=== PATIENT | male | born 1995 | race Caucasian/White ===

== ENCOUNTER 2021-01-13 20:27 | Emergency (ER) | payer BC ==
[2021-01-13] MEDS ORDERED: Sodium Chloride 0.9% 100 ML ONE (21:23)
[2021-01-13] MEDS ORDERED: Sodium Chloride 0.9% 1,000 ML ONE ×2 (21:23→23:00)
[2021-01-13] MEDS ORDERED: Sodium Chloride 0.9% 250 ML 500 ML ONE (21:23)
[2021-01-13] MEDS ORDERED: Clindamycin/D5W 900 mg/50 ml Premix Bag ONE (21:24)
[2021-01-13] MEDS ORDERED: Acetaminophen 500 MG TAB ONE (21:24)
[2021-01-13] MEDS ORDERED: Cefepime 2 GM VIAL ONE (21:24)
[2021-01-13] MEDS ORDERED: Ibuprofen 800 MG TAB ONE (21:26)
[2021-01-13 21:31] LABS: #Basophils 0.1 thou/uL (0.0-0.2); #Lymphocytes 0.7 thou/uL (1.20-3.40); #Monocytes 0.7 thou/uL (0.11-0.59); #Neutrophils 16.4 thou/uL (1.40-6.50); %Basophils 0.6 % (0.0-1.0); %Eosinophils 0.1 % (0.0-10.0); %Lymphocytes 4.1 % (21.0-51.0); %Monocytes 3.7 % (0.0-10.0); %Neutrophils 91.6 % (42.0-75.0); Hemoglobin 13.1 g/dL (14.0-18.0); Mean Corpuscular HGB CONC 32.1 g/dL (32.0-36.0); Mean Corpuscular Hemoglobin 26.2 pg (27.0-31.0); Mean Corpuscular Volume 81.8 fL (78.0-98.0); Mean Platelet Volume 9.3 fL (7.4-10.4); Platelet Count 205 thou/uL (130-400); RBC Distribution Width 12.5 % (11.5-14.5); Red Blood Cell (RBC) Count 5.01 mill/uL (4.70-6.10); White Blood Cell (WBC) Count 17.9 thou/uL (4.8-10.8)
--- NOTE | 2021-01-13 21:43 | RAD ---
SINGLE VIEW OF THE CHEST: History: Fever FINDINGS: Single view of the chest shows a normal sized cardiomediastinal silhouette. There is no evidence of c onsolidation, mass, or pleural effusion. The bones are unremarkable. IMPRESSION: No evidence of acute cardiopulmonary disease. POS: EAA
--- NOTE | 2021-01-13 21:43 | RAD ---
TWO VIEWS LEFT TIBIA/FIBULA: History: Fever, swelling. FINDINGS: Two views of the left tibia/fibula shows moderate diffuse soft tissue swelling. No fracture or disloc ation are seen. No osseous erosions are seen. IMPRESSION: No evidence of acute osseous abnormality. POS: EAA
[2021-01-13 21:46] LABS: ALT (SGPT) 33 U/L (8-55); AST (SGOT) 17 U/L (5-34); Albumin 3.9 g/dL (3.5-5.0); Alkaline Phosphatase 85 U/L (40-110); Anion Gap 16 mmol/L (10-20); BUN (Urea Nitrogen) 13 mg/dL (8.9-20.6); Bilirubin, Total 0.6 mg/dL (0.2-1.2); Calc. Creatinine Clearance 0 mL/min (70-130); Calcium 8.9 mg/dL (7.8-10.44); Carbon Dioxide 20 mmol/L (22-29); Chloride 102 mmol/L (98-107); Globulin 3.3 g/dL (2.4-3.5); Glucose 171 mg/dL (70-105); Potassium 4.2 mmol/L (3.5-5.1); Protein, Total 7.2 g/dL (6.0-8.3); Sodium 134 mmol/L (136-145)
--- NOTE | 2021-01-13 21:52 | RAD ---
THREE VIEWS LEFT FOOT: Comparison: None History: Fever, left foot swelling. FINDINGS: Three views of the left foot shows moderate diffuse soft tissue swelling. There is no evidence of acu te fracture or dislocation. No osseous erosions are seen. No air is seen in the subcutaneous soft tis sues. IMPRESSION: Soft tissue swelling without underlying osseous abnormality. POS: EAA
[2021-01-13 22:11] LABS: Bilirubin Negative (Negative); Blood, Urine Negative (Negative); Clarity Clear (Clear); Glucose, Urine (Dipstick) Negative (Negative); Ketone, Urine Negative (Negative); Leukocyte Negative (Negative); Nitrite Negative (Negative); Protein, Urine (Dipstick) Trace mg/dL (Neg-Trace); Specific Gravity, Urine 1.025 (1.005-1.030); Urobilinogen 0.2 mg/dL (Less than 2)
[2021-01-13] MEDS ORDERED: Enoxaparin Sodium 40 MG/0.4 ML SYRINGE ONE (22:14)
== END 2021-01-14 20:19 | disposition short-term general hospital (02) ==
LOC: MADERS 20:27
DX: A41.9 Sepsis, unspecified organism (principal); L03.116 Cellulitis of left lower limb; L60.0 Ingrowing nail
CPT/HCPCS: 71045; 80053; 81003; 83605; 84484; 85025; 85379; 86140; 87040; 87086; 87804; 96365; 96366; 96367; 96372; J0692; J1650; J3370; J3490; J7050